=== PATIENT | female | born 1950 | race Caucasian/White ===

== ENCOUNTER 2018-06-08 12:34 | Day surgery (SDC) | payer OTHER ==
[2018-06-07 15:16] VITALS: BMI 43.8
--- NOTE | 2018-06-08 12:08 | HP ---
Satellite [facility] - Chief Complaint Chief Complaint: right hand pain/numbness - Past Medical History Allergies/Adverse Reactions: Allergies Allergy/AdvReac Type Severity Reaction Status Date / Time amoxicillin Allergy Intermediate Rash Verified 06/07/18 15:08 - Current Medications Current Medications: Home Medications Medication Instructions Recorded Aspirin [ASA -] 81 mg PO DAILY 05/15/13 Cholecalciferol (Vitamin D3) 2,000 units PO BID 02/12/14 [Vitamin D-3] Furosemide [Lasix -] 40 mg PO DAILY 02/12/14 Valsartan [Diovan] 80 mg PO DAILY 02/12/14 metFORMIN HCL [Glucophage] 1,000 mg PO BID 02/12/14 Nebivolol [Bystolic -] 5 mg PO DAILY #0 tab 02/26/14 Allopurinol [Zyloprim -] 100 mg PO DAILY 06/07/18 Canagliflozin [Invokana] 100 mg PO ACBK 06/07/18 Cholecalciferol (Vitamin D3) 2,000 unit PO DAILY 06/07/18 [Vitamin D3] Cyanocobalamin [Vitamin B12 -] 1,000 mcg PO DAILY 06/07/18 Furosemide [Lasix] 40 mg PO DAILY 06/07/18 Linagliptin [Tradjenta] 5 mg PO BK 06/07/18 Pravastatin Sodium 20 mg PO HS 06/07/18 Valsartan [Diovan] 180 mg PO DAILY 06/07/18 Hydrocodone/Acetaminophen [Everett 1 each PO Q6H PRN #20 tablet MDD 4 06/08/18 5-325 Tablet] Satellite Physical Exam - Physical Examination General Appearance: Well Nourished, Well Developed, Alert & Oriented x3 ENT: Clear Lung: Normal air movement Heart: Regular rate & rhythm Extremities: Other (right hand- + tinels, + phalens EMG + cts) Neurological: Intact, Alert, Oriented Satellite Impression/Plan - Impression/Plan Impression: right cts Operative Procedure: right ctr Date to be Performed: 06/08/18
[2018-06-08] MEDS ORDERED: ceFAZolin SODIUM 1 GM VIAL IVPB ONE (13:20)
[2018-06-08] MEDS ORDERED: MIDAZOLAM HCL 2 MG/2 ML SINGLE DOSE VIAL ONE (14:17)
[2018-06-08] MEDS ORDERED: LIDOCAINE HCL 1%, 10 MG/ML (20ML VIAL) ONE (14:48)
[2018-06-08] MEDS ORDERED: BUPIVACAINE HCL/PF 0.5% (5MG/ML) 10 ML VIAL ONE (14:48)
[2018-06-08] MEDS ORDERED: LIDOCAINE HCL 1%, 10 MG/ML (20ML VIAL) NR ONE (15:33)
[2018-06-08] MEDS ORDERED: BUPIVACAINE HCL/PF (5 MG/ML) 30 ML VIAL IJ ONE (15:33)
--- NOTE | 2018-06-08 15:38 | OP ---
Operative Note - Note: Operative Date: 06/08/18 ([facility]) Pre-Operative Diagnosis: right cts Operation: right ctr Post-Operative Diagnosis: Same as Pre-op Surgeon: Nelson Duke Anesthesiologist/ACCOUNTING MACHINE SERVICER: Jose Eduardo Rolon Anesthesia: Local, MAC Specimens Removed: tenosynovium Estimated Blood Loss (mls): 0 (tourniquet) Operative Report Dictated: Yes
[2018-06-08] MEDS ORDERED: DEXAMETHASONE SOD PHOSPHATE 4 MG/1 ML VIAL ONE (15:39)
[2018-06-08] MEDS ORDERED: ONDANSETRON 4 MG/2 ML VIAL IVPUSH PRN (16:05)
[2018-06-08] MEDS ORDERED: oxyCODONE HCL 5 MG TABLET PO PRN (16:05)
[2018-06-08] MEDS ORDERED: LACTATED RINGERS SOLUTION 1,000 ML IV SCH (16:15)
[2018-06-08 17:36] VITALS: BP 126/60; PULSE 67; TEMP 98.2
--- NOTE | 2018-06-09 06:57 | SPEC ---
DATE OF OPERATION: 06/08/2018 PREOPERATIVE DIAGNOSIS: Left carpal tunnel syndrome. POSTOPERATIVE DIAGNOSIS: Left carpal tunnel syndrome. PROCEDURE: Left carpal tunnel release and tenosynovectomy. SURGEON: Corinna Tony MD ASSISTANTS: None. PRODUCTION OR PLANT ENGINEER: Jose Eduardo Rolon CRNA DRAINS: None. COMPLICATIONS: None. ANESTHESIA: MAC anesthesia with local injection of 14 mL of 0.5% Marcaine and 1% lidocaine mixed. SPECIMEN: Tenosynovium. INDICATIONS: This patient is a 68-year-old female with a preoperative diagnosis of severe left carpal tunnel syndrome. She understands she may not get complete relief of her symptoms, she may have a continuation of the numbness. DESCRIPTION OF PROCEDURE: The patient was brought to the operating room, peripheral IV placed and intravenous sedation was given. One gram of intravenous Ancef was given. MAC anesthesia was induced. A tourniquet was applied to the left upper arm and the left upper extremity was prepped and draped in sterile fashion. The entire case was done under 3.8 loupe magnification. A marking pen was utilized to ladonna out a longitudinal incision in an already existing skin crease. Twenty mL of 0.5% Marcaine mixed with 1% Lidocaine was injected in and around the surgical incision. The left upper extremity was elevated, exsanguinated with an Esmarch bandage and the tourniquet inflated to 250 mmHg. A No. 15 scalpel blade was utilized to cut down through the skin. Subcutaneous hemostasis was achieved with the bipolar cautery. Dissection was done through the superficial palmar fascia. Self-retaining retractors were placed into the wound. Under direct visualization, the transverse carpal ligament was transected with a No. 15 scalpel blade, exposing the median nerve and the contents of the carpal tunnel. The distal and proximal extents of the release were completed with a Littler scissor and checked with irrigation and my small finger. They were seen to be complete. Limited dissection was done on the radial side of the median nerve and more extensive dissection was done on the ulnar side of the median nerve. The patients nerve was seen to be quite compressed by epineurium and therefore a limited epineurotomy was performed. A Ragnell retractor was used to gently retract the median nerve in a radial direction. The patient had a lot of tenosynovitis and therefore a tenosynovectomy was performed off all 9 flexor tendons. This was passed off the field as tenosynovium left wrist. The floor of the carpal tunnel was checked. There were no abnormal masses or ganglion cysts. The area was copiously irrigated and washed out and closure begun. Undyed 4-0 Vicryl was used to close the deep dermal layer. Final skin reapproximation was done with horizontal mattress 4-0 nylon sutures. The area was then washed and dried, covered with Xeroform, 4x4s, fluffs between the fingers, Webril and a 4-inch plaster roll was utilized to make a volar splint, which was then wrapped with Venkatesh and Coban. The tourniquet was taken down after a total tourniquet time of 18 minutes. There were no complications during the case. The patient tolerated the procedure well and was brought to the ambulatory recovery room in stable condition. CORINNA TONY M.D. [id number]
--- NOTE | 2018-06-10 17:11 | PATH ---
Surgical Pathology Report Patient Name: GRACIELA DE LA O [facility]. Rec. #: [id number] /Age/Gender: 1950 (Age: 68) / F Account: [id number] Location: [facility] SURGICAL Taken: 06/08/2018 Received: 06/09/2018 Reported: 06/10/2018 Physicians: Nelson Duke M.D. Specimen(s) Received RIGHT TENOSYNOVIUM Clinical History Carpel tunnel right Final Diagnosis TENOSYNOVIUM, BIOPSY: TENOSYNOVIAL TISSUE WITH FOCAL FIBROSIS. Electronically Signed Dallas Parsons M.D. Gross Description Received in formalin labeled "tenosynovium," is a 1.1 x 1.0 x 0.2 cm aggregate of ellis soft tissue fragments, consistent with tenosynovium. The specimen is entirely submitted in one cassette. DL/06/09/2018 saudi/06/09/2018
== END 2018-06-08 17:40 | disposition home or self-care (01) ==
LOC: JASU-SURG 12:34
PROVIDERS: ATTEND Orthopaedic Surgery
PROC: 0LB60ZZ Excision of Left Lower Arm and Wrist Tendon, Open Approach (ICD-10-PCS; 2018-06-08)
PROC: 01N50ZZ Release Median Nerve, Open Approach (ICD-10-PCS; principal; 2018-06-08 14:30)
DX: G56.02 Carpal tunnel syndrome, left upper limb (principal); M65.832 Other synovitis and tenosynovitis, left forearm
CPT/HCPCS: 82962; 88304-TC

== ENCOUNTER 2018-09-11 12:56 | Emergency (ER) | payer OTHER ==
[2018-09-11 13:11] VITALS: BMI 38.7
--- NOTE | 2018-09-11 14:14 | PDOC ---
History of Present Illness - General Chief Complaint: Injury Stated Complaint: INJURED RIGHT HAND BOTH KNEE IN PAIN Time Seen by Provider: 09/11/18 13:58 History Source: Patient Exam Limitations: No Limitations - History of Present Illness Initial Comments: 09/11/18 14:09 HISTORY OF PRESENT ILLNESS: This 68-year-old lady with past medical history of CHF, hypertension, diabetes who presents emergency department for evaluation of bilateral knee pain, right wrist pain and headache status post trip and fall. Patient states she was walking in her garage when she failed to step over a tiny step causing her to trip landing first on both knees then on her outstretched right hand causing her to strike the top her head on the bottom of a sink that was in front of her. She denies loss of consciousness at the time. Patient states her helped her get to her feet but was ambulatory immediately upon getting to feet. No recent travel or sick contacts. PAST MEDICAL HISTORY: see HPI SURGICAL HISTORY: Denies ALLERGIES: PCN REVIEW OF SYSTEMS General/Constitutional: Denies fever or chills. Denies weakness, weight change. HEENT: Denies change in vision. Denies ear pain or discharge. Denies sore throat. Cardiovascular: Denies chest pain or shortness of breath. Respiratory: Denies cough, wheezing, or hemoptysis. Gastrointestinal: Denies nausea, vomiting, diarrhea or constipation. Denies rectal bleeding. Genitourinary: Denies dysuria, frequency, or change in urination. Musculoskeletal: Bilateral knee pain. Right wrist pain and swelling. Skin and breasts: Denies rash or easy bruising. Neurologic: Reports headache. Denies vertigo, loss of consciousness, or loss of sensation. Psychiatric: Denies depression or anxiety. Endocrine: Denies increased thirst. Denies abnormal weight change. Hematologic/Lymphatic: Denies anemia, easy bleeding, or history of blood clots. Allergic/Immunologic: Denies hives or skin allergy. Denies latex allergy. PHYSICAL EXAM General Appearance: Well-appearing, appropriately dressed. No apparent distress , no intoxication. HEENT: EOMI, PERRLA, normal ENT inspection, normal voice, TMs normal, pharynx normal. No conjunctival pallor. No photophobia, scleral icterus. No palpable skull deformity. No hematomas noted no lacerations present Neck: Supple. Trachea midline. No tenderness, rigidity, carotid bruit, stridor , lymphadenopathy, or thyromegaly. Respiratory/Chest: Lungs CTAB. No shortness of breath, chest tenderness, respiratory distress, accessory muscle use. No crackles, rales, rhonchi, stridor , wheezing, dullness Cardiovascular: RRR. S1, S2. No JVD, murmur, bradycardia, tachycardia. Vascular Pulses: Dorsalis-Pedis (R): 2+, Dorsalis-Pedis (L): 2+ Gastrointestinal/Abdominal: Normal bowel sounds. Abdomen soft, non-distended. No tenderness or rebound tenderness. No organomegaly, pulsatile mass, guarding, hernia, hepatomegaly, splenomegaly. Lymphatic: No adenopathy, tenderness. Musculoskeletal/Extremities: Pelvis Stable. No CVA tenderness. Abrasions noted to bilateral anterior knees. Patellas are mobile bilaterally. No swelling present. Ecchymosis present to dorsum of the right hand over the seconds and third metacarpals. Tenderness to palpation or ecchymosis. Integumentary: Appropriate color, dry, warm. No cyanosis, erythema, jaundice or rash Neurologic: hemp fiber taker off II-XII intact. Fully oriented, alert. Appropriate mood/affect. Motor strength 5/5. No appreciable EOM palsy, facial droop or sensory deficit. Past History - Past Medical History Allergies/Adverse Reactions: Allergies Allergy/AdvReac Type Severity Reaction Status Date / Time amoxicillin Allergy Intermediate Rash Verified 09/11/18 13:02 Home Medications: Ambulatory Orders Aspirin [ASA -] 81 mg PO DAILY 05/15/13 Cholecalciferol (Vitamin D3) [Vitamin D-3] 2,000 units PO BID 02/12/14 metFORMIN HCL [Glucophage] 1,000 mg PO BID 02/12/14 Allopurinol [Zyloprim -] 100 mg PO DAILY 06/07/18 Canagliflozin [Invokana] [facility] 06/07/18 Cyanocobalamin [Vitamin B12 -] 1,000 mcg PO DAILY 06/07/18 Furosemide [Lasix] 40 mg PO DAILY 06/07/18 Linagliptin [Tradjenta] 5 mg PO BK 06/07/18 Pravastatin Sodium 20 mg PO HS 06/07/18 Valsartan [Diovan] 180 mg PO DAILY 06/07/18 Anemia: No Asthma: No Cancer: No Cardiac Disorders: No CVA: No COPD: No CHF: No DVT: No Dementia: No Diabetes: Yes GI Disorders: No Disorders: No HTN: Yes Hypercholesterolemia: Yes Liver Disease: No Seizures: No Thyroid Disease: No - Surgical History Orthopedic Surgery: Yes (right arthroscopy,right knee replacement) - Immunization History Immunization Up to Date: Yes - Suicide/Smoking/Psychosocial Hx Smoking History: Never smoked Have you smoked in the past 12 months: No Hx Alcohol Use: No Drug/Substance Use Hx: No Substance Use Type: None Hx Substance Use Treatment: No *Physical Exam - Vital Signs Last Vital Signs Temp Pulse Resp BP Pulse Ox 97 F L 84 18 176/61 H 97 09/11/18 12:58 09/11/18 12:58 09/11/18 12:58 09/11/18 12:58 09/11/18 12:58 ED Treatment Course - RADIOLOGY Radiology Studies Ordered: Category Date Time Status HEAD CT WITHOUT CONTRAST [CT] Stat CT Scan 09/11/18 14:07 Ordered KNEE 3 POS-LEFT [RAD] Stat Radiology 09/11/18 14:07 Ordered KNEE 3 POS-RIGHT [RAD] Stat Radiology 09/11/18 14:07 Ordered WRIST W/HAND-RIGHT* [RAD] Stat Radiology 09/11/18 14:07 Ordered Medical Decision Making - Medical Decision Making 09/11/18 14:13 A/P: 68-year-old woman with multiple complaints status post trip and fall No obvious head trauma present Swelling and ecchymosis to the dorsum of the right hand over the second and third metacarpal bones Abrasions noted to bilateral knees. Patient is refusing pain medication at this time X-rays, CT of the head, reassess 09/11/18 14:47 X-rays of the wrist and hand as read by Dr. Vazquez: Loss of bone density. Degenerative changes. Calcification ulnar styloid process. Cystic carpal bone changes. Some soft tissue swelling. X-rays of the left knee: There place which appears intact with no signs of loosening. There is no sign of fracture. There is some soft tissue swelling. X-rays of the right knee: Intact right knee replacement. Minimal swelling. No sign of fracture or subluxation. 09/11/18 16:00 CT as read by Dr. Oscar: Negative exam. No discrete noncontrast CT pathology is identified. As all radiographic studies are negative. I will discharge the patient home to follow up with primary doctor. She continues to refuse analgesics at this time. I discussed the physical exam findings, ancillary test results and final diagnoses with the patient. I answered all of the patient's questions. The patient was satisfied with the care received and felt comfortable with the discharge plan and treatment plan. The patient will call their primary care physician within 24 hours to arrange follow-up and will return to the Emergency Department with any new, persistent or worsening symptoms. *DC/Admit/Observation/Transfer Diagnosis at time of Disposition: Fall at home Qualifiers: Encounter type: initial encounter Qualified Code(s): W19.XXXA - Unspecified fall, initial encounter; Y92.009 - Unspecified place in unspecified non- institutional (private) residence as the place of occurrence of the external cause Wrist contusion Qualifiers: Encounter type: initial encounter Laterality: right Qualified Code(s): S60.211A - Contusion of right wrist, initial encounter Knee pain, bilateral Qualifiers: Chronicity: acute Qualified Code(s): M25.561 - Pain in right knee; M25.562 - Pain in left knee Closed head injury Qualifiers: Encounter type: initial encounter Qualified Code(s): S09.90XA - Unspecified injury of head, initial encounter - Discharge Dispostion Disposition: HOME Condition at time of disposition: Fair Decision to Admit order: No - Referrals Referrals: Dana Eason MD [Primary Care Provider] - - Patient Instructions Printed Discharge Instructions: DI for Closed Head Injury, How to Prevent Falls Additional Instructions: Rest, avoid strenuous activity or exercise for the next 24-48 hours May use ice on contusions as needed. May use Tylenol or Motrin for pain relief Watch and seek evaluation for changes in behavior including crankiness, inconsolability, quietness/ sleepiness that is inappropriate, tiredness that is inappropriate, watch for worsening and changes of behavior. Seek immediate evaluation/return to emergency department for vomiting, mental status changes, pain that's out of proportion , bloody drainage from ears or nose. Followup with private physician as needed in one to 2 days for reevaluation - Post Discharge Activity
[2018-09-11 16:10] VITALS: BP 134/67; PULSE 59; TEMP 97.6
== END 2018-09-11 16:10 | disposition home or self-care (01) ==
LOC: JER 12:56 → JERFT 12:56
DX: S09.8XXA Other specified injuries of head, initial encounter (principal); R51 Headache; S60.211A Contusion of right wrist, initial encounter; M25.561 Pain in right knee; M25.562 Pain in left knee; Z96.651 Presence of right artificial knee joint; W01.198A Fall on same level from slipping, tripping and stumbling with subsequent striking against other object, initial encounter; Y93.89 Activity, other specified; Y92.015 Private garage of single-family (private) house as the place of occurrence of the external cause; Y99.8 Other external cause status; I10 Essential (primary) hypertension; I50.9 Heart failure, unspecified; E11.9 Type 2 diabetes mellitus without complications; Z79.84 Long term (current) use of oral hypoglycemic drugs; E78.00 Pure hypercholesterolemia, unspecified
CPT/HCPCS: 70450-TC; 73110-TC-RT-FY; 73130-TC-RT-FY; 73562-TC-LT-FY; 73562-TC-RT-FY; 99281-25

== ENCOUNTER 2020-01-06 17:58 | Observation (INO) | payer OTHER ==
--- NOTE | 2020-01-06 18:43 | PDOC ---
History of Present Illness - General Chief Complaint: Lightheaded Stated Complaint: NAUSEA/DIZZINESS Time Seen by Provider: 01/06/20 18:42 History Source: Patient Exam Limitations: No Limitations - History of Present Illness Initial Comments: 01/06/20 18:42 Kamaljit Whelan is a 70F with PMH HTN, HLD, NIDDM presenting with lightheadedness with syncope and nausea. Patient presents with at bedside. 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 Leighton nauseated after without vomiting. Denies chest pain, SOB, palpitations, abdominal pain. BP checked at home 130s both arms. Blood sugar 129 this morning. Went about her day today without feeling dizzy, first time feeling lightheaded like this, has never fainted before. Walks with cane at baseline. Denies fever/chills, sick contacts, KIMBALL, hearing changes, diarrhea/constipation, urinary sx. No prior cardiac history or thyroid issues. Currently reports no nausea, chest pain, or dizziness, but needed to come into ED by wheelchair. PMD Dr. Doan Cards Dr. Bright [id number] Past History - Past Medical History Allergies/Adverse Reactions: Allergies Allergy/AdvReac Type Severity Reaction Status Date / Time amoxicillin Allergy Intermediate Rash Verified 01/06/20 18:12 Home Medications: Ambulatory Orders Aspirin [ASA -] 81 mg PO DAILY 05/15/13 Cholecalciferol (Vitamin D3) [Vitamin D-3] 2,000 units PO BID 02/12/14 metFORMIN HCL [Glucophage] 1,000 mg PO BID 02/12/14 Cyanocobalamin [Vitamin B12 -] 1,000 mcg PO DAILY 06/07/18 Furosemide [Lasix] 40 mg PO DAILY 06/07/18 Pravastatin Sodium 20 mg PO HS 06/07/18 Losartan Potassium [Cozaar -] 50 mg PO DAILY 01/06/20 Anemia: No Asthma: No Cancer: No Cardiac Disorders: No CVA: No COPD: No CHF: No DVT: No Dementia: No Diabetes: Yes GI Disorders: No Disorders: No HTN: Yes Hypercholesterolemia: Yes Liver Disease: No Seizures: No Thyroid Disease: No - Surgical History Orthopedic Surgery: Yes (right arthroscopy,right knee replacement) - Immunization History Immunization Up to Date: Yes - Psycho Social/Smoking Cessation Hx Smoking History: Never smoked Have you smoked in the past 12 months: No Hx Alcohol Use: No Drug/Substance Use Hx: No Substance Use Type: None Hx Substance Use Treatment: No Review of Systems - Review of Systems Able to Perform ROS?: Yes Constitutional: No: Chills, Fever HEENTM: Yes: Blurred Vision. No: Double Vision, Hearing Loss, Dental Problems Respiratory: No: Cough, Shortness of Breath, SOB with Exertion, SOB at Rest Cardiac (ROS): No: Chest Pain, Irregular Heart Rate, Lightheadedness, Palpitations, Syncope, Chest Tightness ABD/GI: Yes: Nausea. No: Constipated, Diarrhea, Poor Fluid Intake, Rectal Bleeding, Vomiting : No: Burning, Dysuria, Discharge, Frequency, Flank Pain, Hematuria, Incontinence Musculoskeletal: No: Back Pain, Muscle Weakness, Neck Pain Integumentary: No: Symptoms Reported Neurological: Yes: Unsteady Gait. No: Headache, Numbness, Paresthesia Endocrine: No: Symptoms Reported Hematologic/Lymphatic: No: Symptoms Reported All Other Systems: Reviewed and Negative *Physical Exam - Vital Signs Last Vital Signs Temp Pulse Resp BP Pulse Ox 98.2 F 75 20 132/74 99 01/06/20 18:16 01/06/20 18:16 01/06/20 18:16 01/06/20 18:16 01/06/20 18:16 - Physical Exam General Appearance: Yes: Nourished, Appropriately Dressed, Obese HEENT: positive: EOMI, JERARDO, Normal Voice, Symmetrical, Pharynx Normal, Hearing Grossly Normal. negative: Scleral Icterus (R), Scleral Icterus (L), Muffled/ Hoarse voice, Pharyngeal Erythema, Tonsillar Exudate, Tonsillar Erythema Neck: positive: Trachea midline, Normal Thyroid, Supple. negative: Tender, Rigid, Lymphadenopathy (R), Lymphadenopathy (L), Tender lateral, Tender midline Respiratory/Chest: positive: Lungs Clear, Normal Breath Sounds. negative: Chest Tender, Respiratory Distress, Accessory Muscle Use, Crackles, Rales, Rhonchi, Stridor, Wheezing Cardiovascular: positive: Regular Rhythm, Regular Rate. negative: Murmur Gastrointestinal/Abdominal: positive: Normal Bowel Sounds, Soft. negative: Tender, Organomegaly, Pulsatile Mass, Guarding, Rebound, Hernia Musculoskeletal: positive: Normal Inspection. negative: CVA Tenderness, Decreased Range of Motion, Muscle Spasm Extremity: positive: Normal Capillary Refill, Normal Inspection, Normal Range of Motion, Pelvis Stable. negative: Tender, Pedal Edema, Swelling, Calf Tenderness Integumentary: positive: Normal Color, Dry, Warm. negative: Cold, Clammy Neurologic: positive: superior court justice II-XII NML intact, Fully Oriented, Alert, Normal Mood/ Affect, Normal Response, Motor Strength 5/5 (all groups appropriate strength for age), Finger to Nose (normal), Other (HINTS: no saccades to baseline, no nystagmus, no skew. Gait normal, able to walk backwards, but patient reports lightheadedness with position changes.). negative: Numbness, Sensory Deficit ( no decreased sensation to LT down to feet/hands) ED Treatment Course - LABORATORY CBC & Chemistry Diagram: 01/06/20 19:00 01/06/20 19:00 Medical Decision Making - Medical Decision Making 01/06/20 19:24 Patient with PMD NIDDM, HTN, HLD, no prior cardiac history presents with new onset pre-syncope and nausea without vomiting. No abdominal pain, no chest pain/ palpitations/SOB. Neuro exam grossly normal. VS stable. Ddx for new onset lightheadedness/dizziness concerning for brain lesion, electrolyte abnormalities, cardiac etiology, infection, dehydration, poor sympathetic tone. Most likely vasovagal given history, but will rule out more concerning causes. - CMP/CBC/Mag/Phos for eval lytes - CP/ECG/CXR for eval heart/lungs - CT head for eval brain lesion - UA/UC for eval UTI ECG shows NSR HR 69, QRS 98, QTc 437, TWI to aVR/V1-V3 known from prior ECG last year, no concerning findings 01/06/20 20:22 CXR unremarkable. Labs notable for: - CMP WNL - CBC WNL - trop <0.02 - urine WNL, no UTI 01/06/20 21:32 CT no intracranial pathology. Patient requires overnight observation with telemetry for syncope and further cardiac evaluation. HEART Score 5. 01/06/20 22:06 Orthostatic VS: - supine 132/56 - sitting 136/70 - standing 144/89 02/08/20 22:16 Discussed case with VETERINARY POULTRY INSPECTOR martin Carranza for tele/obs under Dr. Lema. Discharge - Discharge Information Problems reviewed: Yes Clinical Impression/Diagnosis: Lightheadedness, Nausea Condition: Stable - Admission Yes - Follow up/Referral Referrals: Jeane Doan MD [Primary Care Provider] - - Patient Discharge Instructions - Post Discharge Activity
--- NOTE | 2020-01-06 19:08 | PDOC ---
Documentation entered by Andrea Silverio SCRIBE, acting as scribe for Pattie Farr DO. Pattie Farr DO: This documentation has been prepared by the fadi, Andrea Silverio SCRIBE, under my direction and personally reviewed by me in its entirety. I confirm that the documentation accurately reflects all work, treatment, procedures, and medical decision making performed by me. Attending Attestation - Resident Resident Name: Kush Crystal - ED Attending Attestation I have performed the following: I have examined & evaluated the patient, The case was reviewed & discussed with the resident, I agree w/resident's findings & plan - HPI HPI: 01/06/20 19:04 The patient is a 70 year old female with a significant PMH of DM and HLD who presents to the emergency department for dizziness, nausea and loss of vision s/ p bending over to tie her shoes. Pt states her dizziness is worse when standing up. The patient denies chest pain, shortness of breath, headache and . Denies fever , chills, cough, vomiting, diarrhea and constipation. Denies dysuria, frequency , urgency and hematuria. Allergies: NKDA 01/06/20 19:08 - Physicial Exam PE: 01/06/20 19:05 Agree with resident exam. - Medical Decision Making 01/06/20 19:05 70-year-old female with sudden onset of lightheadedness dizziness and dimmed vision when bending over to tie her shoe Patient denies chest pain There is no associated trauma On exam patient has steady gait, she does feel more lightheaded when standing Plan for evaluation of near syncope/dizziness EKG shows a normal sinus rhythm at 69 bpm with no acute ST segment elevation Dizziness is now resolved, central cause unlikely Orthostatics Will hold at minimum for observation on medical service
[2020-01-06 19:34] LABS: BASO % 0.4 % (0-2.0); EOS % 1.8 % (0-4.5); HEMOGLOBIN 12.2 GM/dL (10.7-15.3); LYMPH % 20.7 % (8-40); MCH 30.8 pg (25.7-33.7); MCHC 33.9 g/dl (32.0-36.0); MEAN CELL VOLUME 90.8 fl (80-96); MEAN PLT VOLUME 8.8 fl (7.5-11.1); MONO % 7.8 % (3.8-10.2); NEUT % 69.3 % (42.8-82.8); PLATELET COUNT 230 K/MM3 (134-434); RBC 3.96 M/mm3 (3.60-5.2); RDW 13.6 % (11.6-15.6); WHITE BLOOD COUNT 9.2 K/mm3 (4.0-10.0)
[2020-01-06 19:55] LABS: INR 0.97 (0.83-1.09); PROTHROMBIN TIME (PATIENT) 11.5 SEC (9.7-13.0)
[2020-01-06 19:58] LABS: ACTIVATED PTT 26.9 SECONDS (25.2-36.5)
[2020-01-06 20:01] LABS: MAGNESIUM 1.6 mg/dL (1.8-2.4); PHOSPHOROUS 2.6 mg/dL (2.5-4.9)
[2020-01-06 20:07] LABS: ALBUMIN 3.8 g/dl (3.4-5.0); ALK PHOS 87 U/L (45-117); ANION GAP 10 MMOL/L (8-16); BILIRUBIN,TOTAL 0.2 mg/dL (0.2-1); BLOOD UREA NITROGEN 21.8 mg/dL (7-18); CALCIUM 9.7 mg/dL (8.5-10.1); CHLORIDE 100 mmol/L (98-107); CO2 27 mmol/L (21-32); GLUCOSE,RANDOM 163 mg/dL (74-106); POTASSIUM 3.8 mmol/L (3.5-5.1); SGOT/AST 20 U/L (15-37); SGPT/ALT 22 U/L (13-61); SODIUM 138 mmol/L (136-145); TOT PROT 7.3 g/dl (6.4-8.2)
[2020-01-06 20:45] LABS: EPI CELLS 2.3 /HPF (0-5/HPF); HYALINE CASTS 2 /lpf (0-8); URINE APPEARANCE CLEAR; URINE BACTERIA 24.2 /hpf (NEGATIVE); URINE BILIRUBIN NEGATIVE (NEGATIVE); URINE COLOR YELLOW; URINE GLUCOSE (UA) NEGATIVE (NEGATIVE); URINE KETONE NEGATIVE (NEGATIVE); URINE LEUK ESTERASE 1+ (NEGATIVE); URINE NITRITE NEGATIVE (NEGATIVE); URINE PROTEIN NEGATIVE (NEGATIVE); URINE RBC 2 /hpf (0-4); URINE UROBILINOGEN 0.2 mg/dL (0.2-1.0); URINE WBC 12 /hpf (0-5)
--- NOTE | 2020-01-06 22:27 | HP ---
Admitting History and Physical - Primary Care Physician PCP: Jeane Doan - Admission Chief Complaint: Syncope History of Present Illness: This is a 70 y/o woman with a PMHx of HTN, HLD, NIDDM, Severe Obesity. Who presents to the ED for Syncope x today. Patient reports while bending down to tie her shoe, she passed out. Her reports her "blacking out for a few seconds" Patient denies having any similar event. Patient denies SOB, chest pain , and palpitations. Patient denies fever, chills, cough, KIMBALL, AP, N/V/D, constipation, dysuria. Patient denies any sick contact exposures or recent travel. ED course was noted for: (1) Head CT- neg ICH, mass or lesions (2) Chest Xray- no congestive changes, no infiltrates (3) EKG- NSR, TWI (AVR, V1-V3) (4) Troponin- < 0.02 History Source: Patient, Family Member Limitations to Obtaining History: No Limitations - Past Medical History Cardiovascular: Yes: HTN, Hyperlipdemia Endocrine: Yes: Diabetes Mellitus - Smoking History Smoking history: Never smoked Have you smoked in the past 12 months: No - Alcohol/Substance Use Hx Alcohol Use: No Home Medications - Allergies Allergies/Adverse Reactions: Allergies Allergy/AdvReac Type Severity Reaction Status Date / Time amoxicillin Allergy Intermediate Rash Verified 01/06/20 18:12 - Home Medications Home Medications: Ambulatory Orders Aspirin [ASA -] 81 mg PO DAILY 05/15/13 Cholecalciferol (Vitamin D3) [Vitamin D-3] 2,000 units PO BID 02/12/14 metFORMIN HCL [Glucophage] 1,000 mg PO BID 02/12/14 Cyanocobalamin [Vitamin B12 -] 1,000 mcg PO DAILY 06/07/18 Furosemide [Lasix] 40 mg PO DAILY 06/07/18 Pravastatin Sodium 20 mg PO HS 06/07/18 Losartan Potassium [Cozaar -] 50 mg PO DAILY 01/06/20 Review of Systems - Review of Systems Constitutional: reports: No Symptoms Eyes: reports: No Symptoms HENT: reports: No Symptoms Neck: reports: No Symptoms Cardiovascular: reports: No Symptoms Respiratory: reports: No Symptoms Gastrointestinal: reports: No Symptoms Genitourinary: reports: No Symptoms Breasts: reports: No Symptoms Reported Musculoskeletal: reports: No Symptoms Integumentary: reports: No Symptoms Neurological: reports: Syncope Endocrine: reports: No Symptoms Hematology/Lymphatic: reports: No Symptoms Psychiatric: reports: No Symptoms Pain Intensity: 0 Physical Examination Vital Signs: Vital Signs Temperature 98.2 F 01/06/20 18:16 Pulse Rate 75 01/06/20 18:16 Respiratory Rate 20 01/06/20 18:16 Blood Pressure 132/74 01/06/20 18:16 O2 Sat by Pulse Oximetry (%) 99 01/06/20 18:16 Constitutional: Yes: Well Nourished, No Distress, Calm Eyes: Yes: WNL, Conjunctiva Clear, EOM Intact, PERRL HENT: Yes: WNL, Atraumatic, Normocephalic Neck: Yes: WNL, Supple, Trachea Midline Cardiovascular: Yes: Regular Rate and Rhythm, S1, S2 Respiratory: Yes: WNL, Regular, CTA Bilaterally Gastrointestinal: Yes: WNL, Normal Bowel Sounds, Soft, Abdomen, Obese ...Rectal Exam: Yes: Deferred Renal/: Yes: WNL Breast(s): Yes: WNL Musculoskeletal: Yes: WNL Extremities: Yes: WNL Edema: No Peripheral Pulses WNL: Yes Integumentary: Yes: WNL Neurological: Yes: WNL, Alert, Oriented, Cran Nerves II-XII Intact ...Motor Strength: WNL Psychiatric: Yes: WNL, Alert, Oriented Labs: CBC, BMP 01/06/20 19:00 01/06/20 19:00 Laboratory Results - last 24 hr 01/06/20 01/06/20 01/06/20 19:00 19:00 19:00 WBC RBC Hgb Hct MCV MCH MCHC RDW Plt Count MPV Absolute Neuts (auto) Neutrophils % Lymphocytes % Monocytes % Eosinophils % Basophils % Nucleated RBC % PT with INR 11.50 INR 0.97 PTT (Actin FS) 26.9 Sodium 138 Potassium 3.8 Chloride 100 Carbon Dioxide 27 Anion Gap 10 BUN 21.8 H Creatinine 1.0 Est GFR (CKD-EPI)AfAm 65.18 Est GFR (CKD-EPI)NonAf 56.24 POC Glucometer Random Glucose 163 H Calcium 9.7 Phosphorus 2.6 Magnesium 1.6 L Total Bilirubin 0.2 AST 20 ALT 22 Alkaline Phosphatase 87 Creatine Kinase 184 Creatine Kinase Index 3.1 CK-MB (CK-2) 5.8 H Troponin I < 0.02 Total Protein 7.3 Albumin 3.8 Urine Color Urine Appearance Urine pH Ur Specific [place] Urine Protein Urine Glucose (UA) Urine Ketones Urine Blood Urine Nitrite Urine Bilirubin Urine Urobilinogen Ur Leukocyte Esterase Urine WBC (Auto) Urine RBC (Auto) Urine Casts (Auto) U Epithel Cells (Auto) Urine Bacteria (Auto) 01/06/20 01/06/20 01/06/20 19:00 20:00 22:30 WBC 9.2 RBC 3.96 Hgb 12.2 Hct 36.0 D MCV 90.8 MCH 30.8 MCHC 33.9 RDW 13.6 Plt Count 230 MPV 8.8 Absolute Neuts (auto) 6.4 Neutrophils % 69.3 Lymphocytes % 20.7 Monocytes % 7.8 Eosinophils % 1.8 Basophils % 0.4 Nucleated RBC % 0 PT with INR INR PTT (Actin FS) Sodium Potassium Chloride Carbon Dioxide Anion Gap BUN Creatinine Est GFR (CKD-EPI)AfAm Est GFR (CKD-EPI)NonAf POC Glucometer 167 Random Glucose Calcium Phosphorus Magnesium Total Bilirubin AST ALT Alkaline Phosphatase Creatine Kinase Creatine Kinase Index CK-MB (CK-2) Troponin I Total Protein Albumin Urine Color Yellow Urine Appearance Clear Urine pH 5.0 Ur Specific [place] 1.016 Urine Protein Negative Urine Glucose (UA) Negative Urine Ketones Negative Urine Blood Trace Urine Nitrite Negative Urine Bilirubin Negative Urine Urobilinogen 0.2 Ur Leukocyte Esterase 1+ H Urine WBC (Auto) 12 Urine RBC (Auto) 2 Urine Casts (Auto) 2 U Epithel Cells (Auto) 2.3 Urine Bacteria (Auto) 24.2 Intake & Output 01/03/20 01/04/20 01/05/20 01/06/20 23:59 23:59 23:59 23:59 Weight 100 kg Current Medications Generic Name Dose Route Start Last Admin Trade Name Freq PRN Reason Stop Dose Admin Aspirin 81 mg 01/07/20 10:00 Asa - PO DAILY [facility] Atorvastatin Calcium 10 mg 01/07/20 22:00 Lipitor - PO HS [facility] Cholecalciferol 2,000 unit 01/07/20 10:00 Vitamin D3 - PO BID [facility] Cyanocobalamin 1,000 mcg 01/07/20 10:00 Vitamin B12 - PO DAILY [facility] Furosemide 40 mg 01/07/20 10:00 Lasix - PO DAILY [facility] Heparin Sodium (Porcine) 5,000 unit 01/07/20 10:00 Heparin - SQ BID [facility] Insulin Aspart 1 vial 01/07/20 07:00 Novolog Vial Sliding Scale - SQ ACHS [facility] Protocol Losartan Potassium 50 mg 01/07/20 10:00 Cozaar - PO DAILY [facility] Metformin HCl 1,000 mg 01/07/20 07:00 Glucophage - PO BIDAC [facility] Imaging - Results Chest X-ray: Report Reviewed, Image Reviewed Cat Scan: Report Reviewed, Image Reviewed EKG: Image Reviewed Problem List - Problems (1) Syncope Code(s): R55 - SYNCOPE AND COLLAPSE (2) Lightheadedness Code(s): R42 - DIZZINESS AND GIDDINESS (3) HTN (hypertension) Code(s): I10 - ESSENTIAL (PRIMARY) HYPERTENSION (4) HLD (hyperlipidemia) Code(s): E78.5 - HYPERLIPIDEMIA, UNSPECIFIED (5) Non-insulin dependent diabetes mellitus Code(s): LVF8038 - (6) Severe obesity (BMI 35.0-39.9) with comorbidity Code(s): E66.01 - MORBID (SEVERE) OBESITY DUE TO EXCESS CALORIES Assessment/Plan This is a 70 y/o woman with a PMHx of HTN, HLD, NIDDM, Severe Obesity. Placed in Telemetry Observation for Syncope for further evaluation of their emergent condition. Plan: Tele Observation Likely secondary to Vasovagal vs Arrhythmia HEART Score 5 Continue Cardiac monitoring Serial Enzymes Appreciate Cardiology consult Echo in am Carotid Doppler r/o Stenosis Lipid panel, CBC, BMP, TSH, Mg, phos in am Orthostatics Neuro checks Fall Precautions Continue home meds BGMs ISS FEN- PO fluids as tolerated, Replete lytes prn, Low Na, Diabetic Diet DVT ppx- OOB, SCDs, Heparin SQ Dispo- Observation Visit type - Emergency Visit Emergency Visit: Yes ED Registration Date: 01/06/20 Care time: The patient presented to the Emergency Department on the above date and was hospitalized for further evaluation of their emergent condition. - New Patient This patient is new to me today: Yes Date on this admission: 01/06/20 - Critical Care Critical Care patient: No
[2020-01-07 05:40] VITALS: BMI 38.5
[2020-01-07] MEDS: INSULIN SLIDING SCALE (NOVOLOG) 1 VIAL SQ SCH ×4 (08:07→21:50)
[2020-01-07] MEDS: metFORMIN HCL 500 MG TABLET (FP) PO SCH ×2 (08:07→16:52)
[2020-01-07] MEDS: ASPIRIN 81 MG CHEWABLE TABLETS PO SCH (09:13)
[2020-01-07] MEDS: FUROSEMIDE 40 MG TABLET (FP) PO SCH (09:13)
[2020-01-07] MEDS: CYANOCOBALAMIN 1,000 MCG TABLET (FP) PO SCH (09:13)
[2020-01-07] MEDS: LOSARTAN POTASSIUM 50 MG TABLET (FP) PO SCH (09:13)
[2020-01-07] MEDS: HEPARIN NA (PORCINE) 5,000 UNITS/ML 1ML VIAL SQ SCH ×2 (09:14→21:48)
[2020-01-07] MEDS ORDERED: CHOLECALCIFEROL (VIT D3) 1,000 UNIT (25 MCG) TABLET PO SCH (10:00)
[2020-01-07 13:23] LABS: BASO % 0.6 % (0-2.0); EOS % 2.7 % (0-4.5); HEMATOCRIT 34.9 % (32.4-45.2); LYMPH % 34.2 % (8-40); MCH 30.8 pg (25.7-33.7); MCHC 34.4 g/dl (32.0-36.0); MEAN CELL VOLUME 89.7 fl (80-96); MEAN PLT VOLUME 8.6 fl (7.5-11.1); MONO % 6.7 % (3.8-10.2); NEUT % 55.8 % (42.8-82.8); PLATELET COUNT 232 K/MM3 (134-434); RBC 3.89 M/mm3 (3.60-5.2); RDW 13.4 % (11.6-15.6); WHITE BLOOD COUNT 7.4 K/mm3 (4.0-10.0)
[2020-01-07 13:36] LABS: ANION GAP 7 MMOL/L (8-16); BLOOD UREA NITROGEN 16.8 mg/dL (7-18); CALCIUM 10.3 mg/dL (8.5-10.1); CHLORIDE 100 mmol/L (98-107); CHOLESTEROL 181 mg/dL (50-200); CO2 28 mmol/L (21-32); CREATININE 0.8 mg/dL (0.55-1.3); GLUCOSE,RANDOM 121 mg/dL (74-106); HDL CHOLESTEROL 65 mg/dL (40-60); LDL CHOLESTEROL (ONLY SJRH) 84 mg/dL (5-100); MAGNESIUM 1.7 mg/dL (1.8-2.4); PHOSPHOROUS 2.9 mg/dL (2.5-4.9); POTASSIUM 3.9 mmol/L (3.5-5.1); SODIUM 136 mmol/L (136-145); TRIGLYCERIDES 228 mg/dL (0-150)
--- NOTE | 2020-01-07 13:56 | PN ---
Progress Note, Physician Chief Complaint: Syncope History of Present Illness: NAD denies any light headedness or dizziness - Current Medication List Current Medications: Active Medications Aspirin (Asa -) 81 mg PO DAILY [facility] Last Admin: 01/07/20 09:13 Dose: 81 mg Atorvastatin Calcium (Lipitor -) 10 mg PO [facility] Cholecalciferol (Vitamin D3 -) 2,000 unit PO BID [facility] Last Admin: 01/07/20 09:13 Dose: 2,000 unit Cyanocobalamin (Vitamin B12 -) 1,000 mcg PO DAILY [facility] Last Admin: 01/07/20 09:13 Dose: 1,000 mcg Furosemide (Lasix -) 40 mg PO DAILY [facility] Last Admin: 01/07/20 09:13 Dose: 40 mg Heparin Sodium (Porcine) (Heparin -) 5,000 unit SQ BID [facility] Last Admin: 01/07/20 09:14 Dose: 5,000 unit Insulin Aspart (Novolog Vial Sliding Scale -) 1 vial SQ [facility]; Protocol Last Admin: 01/07/20 11:39 Dose: Not Given Losartan Potassium (Cozaar -) 50 mg PO DAILY [facility] Last Admin: 01/07/20 09:13 Dose: 50 mg Metformin HCl (Glucophage -) 1,000 mg PO BIDAC [facility] Last Admin: 01/07/20 08:07 Dose: 1,000 mg - Objective Vital Signs: Vital Signs Temperature 98.3 F 01/07/20 09:00 Pulse Rate 70 01/07/20 09:00 Respiratory Rate 20 01/07/20 09:00 Blood Pressure 143/69 01/07/20 09:00 O2 Sat by Pulse Oximetry (%) 100 01/07/20 08:10 Constitutional: Yes: Well Nourished, No Distress, Calm Cardiovascular: Yes: Regular Rate and Rhythm Respiratory: Yes: Regular Gastrointestinal: Yes: WNL, Normal Bowel Sounds, Soft Genitourinary: Yes: WNL Musculoskeletal: Yes: WNL Extremities: Yes: WNL Edema: No Peripheral Pulses WNL: Yes Neurological: Yes: Alert, Oriented Psychiatric: Yes: Alert, Oriented Labs: CBC, BMP 01/07/20 12:40 01/07/20 12:15 INR, PTT INR 0.97 (0.83-1.09) 01/06/20 19:00 Problem List - Problems (1) HTN (hypertension) Assessment/Plan: -Resume home meds -Cardiology consult -Tele monitor -Orthostatic BP Problems reviewed: Yes Code(s): I10 - ESSENTIAL (PRIMARY) HYPERTENSION (2) Syncope Assessment/Plan: -Resume home meds -Cardiology consult -Tele monitor -check Orthostatic BP -Echo -U/S carotid Problems reviewed: Yes Code(s): R55 - SYNCOPE AND COLLAPSE (3) Diabetes Assessment/Plan: -recheck A1c -BGM AC HS -Diabetic low sodium diet -ISS -Continue metformin Problems reviewed: Yes Code(s): E11.9 - TYPE 2 DIABETES MELLITUS WITHOUT COMPLICATIONS (4) Hypomagnesemia Assessment/Plan: -Magnesium 400 mg po BID Problems reviewed: Yes Code(s): E83.42 - HYPOMAGNESEMIA (5) Hypercalcemia Assessment/Plan: -Recheck BMP in AM -Cut back on Vit D3 to 2000 U po daily Problems reviewed: Yes Code(s): E83.52 - HYPERCALCEMIA (6) Severe obesity (BMI 35.0-39.9) with comorbidity Problems reviewed: Yes Code(s): E66.01 - MORBID (SEVERE) OBESITY DUE TO EXCESS CALORIES
--- NOTE | 2020-01-07 14:14 | EKG ---
Test Reason : Blood Pressure : / mmHG Vent. Rate : 069 BPM Atrial Rate : 069 BPM P-R Int : 170 ms QRS Dur : 098 ms QT Int : 408 ms P-R-T Axes : 068 006 052 degrees QTc Int : 437 ms NORMAL SINUS RHYTHM CANNOT RULE OUT ANTERIOR INFARCT , AGE UNDETERMINED ABNORMAL ECG Confirmed by MD VERONA, ARTURO ([id number]) on 01/07/2020 2:14:46 PM Referred By: Confirmed By:ARTURO RHOADES MD
--- NOTE | 2020-01-07 21:35 | CONS ---
DATE OF CONSULTATION: DATE OF DICTATION: 01/07/2020 REQUESTING PHYSICIAN: Jeane Doan MD CHIEF COMPLAINT: 1. Lightheadedness. 2. Transient loss of vision. 3. Nausea. 4. Retching. Patient is a 70-year-old [place] female with longstanding history of hypertension, noninsulin-dependent diabetes mellitus, hypercholesterolemia, history of obstructive sleep apnea syndrome who had been out shopping for the day and came home around 4 p.m. and went downstairs to take her shoes off. When she bent down, she became extremely lightheaded, was unable to see, and called her for help who brought her to a chair. While she was sitting, she became nauseous and started retching. The patient slowly recovered. The lightheadedness persisted, but was less pronounced. She denies having vertigo. There is no history of tinnitus. There is no history of chest pain or discomfort either at rest or with exertion, no history of palpitations. Patient states recently she was found to have elevated blood pressure on 2 different occasions and the dose of losartan had been increased to 15 mg p.o. daily. On questioning, the patient had breakfast that consisted of 2 toasts and she took her medications, which included 1000 mg of metformin and later in the day left to do her shopping. She had no lunch and on return to the house she had a banana smoothie. The patient did state that she felt as if she had an "out of body" experience during these symptoms. PAST HISTORY: As mentioned in the history of present illness. SURGICAL HISTORY: Status post bilateral knee replacements. Surgery for carpal tunnel syndrome involving the right hand. She recently had evacuation of a cyst by her copper plate lithographer involving the right upper anterior chest. SOCIAL HISTORY: , works at her [employer]. Has a son and 2 daughters, who apparently at healthy. She has never smoked, does not drink alcohol. No history of excessive use of caffeine. FAMILY HISTORY: Father at age 86 related to carcinoma of the lung. Mother at the age of 85 apparently related to intestinal obstruction. She had 1 sister and 4 brothers. The sister apparently is healthy. A brother in his 60s due to myocardial infarction. A second brother following surgery and apparently had postoperative infection. A third brother at 81 years old of unknown cause. The remaining brother apparently has gout. ALLERGIES: AMOXICILLIN. MEDICATIONS PRIOR TO ADMISSION: 1. Metformin 1000 mg p.o. b.i.d. 2. Losartan 50 mg p.o. daily. 3. Lasix 20 mg p.o. daily for dependent edema. 4. Pravastatin 40 mg p.o. nightly. 5. Aspirin 81 mg p.o. daily. 6. Vitamin D3 2000 international units p.o. daily. 7. Vitamin B12 1000 mcg p.o. daily. REVIEW OF SYSTEMS: Constitutional: No history of chills, fever, or night sweats. No history of unintentional weight loss. HEENT: No history of headaches. History of visual disturbance as mentioned above. No history of epistaxis or hoarseness. No history of tinnitus or deafness. Cardiovascular: See history of present illness. No history of murmur. Respiratory: No history of nausea, vomiting, melena, or hematemesis. Gastrointestinal: History of nausea and retching. No history of vomiting. No history of melena or hematemesis. No history of change in bowel habits or abdominal discomfort. Neurologic: See history of present illness. No history of focal weakness, seizures, or syncope. Musculoskeletal: History of osteoarthritis. No history of myalgias. Genitourinary: Recently diagnosed to have uterine polyps, menopausal. No history of dysfunctional uterine bleeding. No history of dysuria, frequency, or hematuria. Hematologic/Lymphatic: No history of anemia, bleeding, or ecchymosis. Miscellaneous: History of obstructive sleep apnea, awaiting CPAP. PHYSICAL EXAMINATION: General: A 70-year-old morbidly obese female who is in no acute distress, no pallor, cyanosis, clubbing, or jaundice. Vital Signs: Blood pressure at 1400 hours, supine 154/78 mmHg, standing 138/70 mmHg. Pulse 73 beats per minute and regular, respirations 20 per minute, temperature 97.9 degrees Fahrenheit. Weight 101.718 kg. Oxygen saturation on room air was 100%. Neck: Short, supple. No jugular venous distention. Carotids were 2+. Upstrokes were normal. No bruits were heard. No thyromegaly was appreciated. Heart: PMI was in the 5th intercostal space. No heaves or thrills. Rhythm appeared regular. Heart sounds were distant. No murmur or gallops were heard. Lungs: Clear to auscultation. Chest: Normal AP diameter. Expansion grossly appeared to be normal. Abdomen: Morbidly obese, soft and nontender. No hepatosplenomegaly or palpable masses were felt. Bowel sounds are present. No bruits were appreciated. Extremities: No calf tenderness or dependent edema and there were bilateral varicosities involving both lower extremities, more pronounced on the left lower extremity. Pulses were equal. LABORATORY DATA: ECG January 06, 2020, at 1821: Sinus rhythm with intraatrial conduction abnormality. Poor R-wave progression V1 to V3. Possibility of an anterior septal wall myocardial infarction of indeterminate age, cannot be excluded. Changes may be related to lead placement. Nonspecific T-wave abnormalities. Repeat ECG on January 07, 2020, at 1412: Sinus rhythm, LVH by voltage criteria (AVL), left axis deviation, nonspecific T-wave abnormalities. Compared to tracing of January 06, 2020, there is increase in R-wave voltage in V2 and V3. ST segments were isoelectric. CBC January 07, 2020: WBC is 7400, hemoglobin 12.0 g/dL. Normal cell indices. Platelet count 232,000. Differential: Neutrophils 55.8%, lymphocytes 34.2%, monocytes 6.7%, eosinophils 2.7%, basophils 0.6%. Chemistry January 07, 2020: Sodium 136, potassium 3.9, chloride 100, CO2 28 mmol/L, BUN 16.8 mg/dL, creatinine 0.8 mg/dL. Random glucose is 121 mg/dL. Hemoglobin A1c is 6.7%. Calcium 10.3 mg/dL, phosphorous 2.9, magnesium 1.7 mg/dL (low). CK on January 07, 2020: Less than 0.02 on 2 different occasions. Lipid panel: Total cholesterol of 181, triglycerides 228, LDL cholesterol 84, HDL cholesterol 65 mg/dL. TSH is 2.87. X-ray of the chest, impression: No congestive changes or edema in the lungs. No sign of pneumonia. No mediastinal widening. CT of the head, impression: No acute intracranial hemorrhage. No suspicious findings in the brain. Carotid ultrasound report is pending. IMPRESSION: 1. Dizziness, nausea, near syncope with transient loss of vision, etiology to be determined. A. Transient ischemic attack needs exclusion. 2. Hypertension, hypertensive cardiovascular disease. Presently normotensive with mild decrease in blood pressure with change in posture. 3. Noninsulin-dependent diabetes mellitus. 4. Hypercholesterolemia. 5. Obstructive sleep apnea syndrome. 6. Generalized osteoarthritis. 7. Bilateral varicosities involving both lower extremities. RECOMMENDATIONS: 1. Consider myocardial perfusion study in view of the initial ECG findings. 2. Patient was strongly consulted that she must not go hungry during the day, especially after she has taken medication for her diabetes mellitus and should always carry candy with her. 3. Continue to check blood pressures supine and standing. 4. Consult regarding diet restrictions and requires weight reduction. 5. Patient was advised to contact the sleep physician, so a CPAP could be ordered as soon as possible. 6. Holter monitor should be considered as an outpatient basis. 7. Carotid ultrasound report is pending. Thank you for your referral. FILIPPO ARIZA M.D. [id number]
[2020-01-07] MEDS: MAGNESIUM OXIDE 400 MG TABLET (FP) PO SCH (21:48)
[2020-01-07] MEDS ORDERED: ATORVASTATIN CA 10 MG TABLET (FP) PO SCH (22:00)
[2020-01-08] MEDS: INSULIN SLIDING SCALE (NOVOLOG) 1 VIAL SQ SCH ×2 (06:05→12:11)
[2020-01-08] MEDS: metFORMIN HCL 500 MG TABLET (FP) PO SCH (06:06)
[2020-01-08 08:21] LABS: BLOOD UREA NITROGEN 20.9 mg/dL (7-18); CALCIUM 9.5 mg/dL (8.5-10.1); CREATININE 0.7 mg/dL (0.55-1.3); POTASSIUM 3.8 mmol/L (3.5-5.1)
--- NOTE | 2020-01-08 09:36 | EKG ---
Test Reason : Blood Pressure : / mmHG Vent. Rate : 060 BPM Atrial Rate : 060 BPM P-R Int : 182 ms QRS Dur : 100 ms QT Int : 412 ms P-R-T Axes : 036 -14 033 degrees QTc Int : 412 ms NORMAL SINUS RHYTHM WITH SINUS ARRHYTHMIA MODERATE VOLTAGE CRITERIA FOR LVH, MAY BE NORMAL VARIANT BORDERLINE ECG WHEN COMPARED WITH ECG OF 06-JAN-2020 18:21, NO SIGNIFICANT CHANGE WAS FOUND Confirmed by Cisco Desouza ([id number]) on 01/08/2020 9:36:45 AM Referred By: Caro FAUSTIN Confirmed By:Cisco Desouza
[2020-01-08] MEDS: ASPIRIN 81 MG CHEWABLE TABLETS PO SCH (09:44)
[2020-01-08] MEDS: HEPARIN NA (PORCINE) 5,000 UNITS/ML 1ML VIAL SQ SCH (09:44)
[2020-01-08] MEDS: FUROSEMIDE 40 MG TABLET (FP) PO SCH (09:44)
[2020-01-08] MEDS: LOSARTAN POTASSIUM 50 MG TABLET (FP) PO SCH (09:45)
[2020-01-08] MEDS: CYANOCOBALAMIN 1,000 MCG TABLET (FP) PO SCH (09:45)
[2020-01-08] MEDS: MAGNESIUM OXIDE 400 MG TABLET (FP) PO SCH (09:45)
[2020-01-08] MEDS ORDERED: CHOLECALCIFEROL (VIT D3) 1,000 UNIT (25 MCG) TABLET PO SCH (10:00)
--- NOTE | 2020-01-08 12:06 | ECHO ---
Name: COMPETIELLO, ANGIOLA Exam:Adult Echocardiogram Study Date: 01/08/2020 11:30 AM Age: 70 yrs Reason For Study: SYNCOPE Height: 64 in Weight: 220 lb BSA: 2.0 m2 MMode/2D Measurements & Calculations IVSd: 1.2 cm Ao root diam: 3.2 cm LVIDd: 5.1 cm LA dimension: 4.1 cm LVIDs: 3.3 cm LVPWd: 1.2 cm LVPWs: 1.2 cm EDV(Teich): 122.1 ml ESV(Teich): 45.1 ml LVOT diam: 2.1 cm LAV (MOD-bp): 70.7 ml RV S Chuy: 15.1 cm/sec Doppler Measurements & Calculations MV E max chuy: 85.9 cm/sec Ao V2 max: 167.9 cm/sec MV A max chuy: 115.4 cm/sec Ao max P.3 mmHg MV E/A: 0.74 AI P1/2t: 539.4 msec MV dec time: 0.23 sec AI max chuy: 442.8 cm/sec TR max chuy: 235.3 cm/sec AI max P.6 mmHg TR max P.1 mmHg AI dec slope: 240.5 cm/sec2 PA V2 max: 120.5 cm/sec Med Peak E' Chuy: 6.0 cm/sec PA max P.8 mmHg Med E/e': 14.4 Lat Peak E' Chuy: 6.2 cm/sec Lat E/e': 13.9 Procedure Study Quality: Fair. The study was technically difficult with many images being suboptimal in quality . Left Ventricle The left ventricle is normal in size. There is mild concentric left ventricular hypertrophy. Left fidel tricular systolic function is normal. Ejection Fraction = 60-65%. The transmitral spectral Doppler flow patter n is suggestive of impaired LV relaxation. Atria The left atrium is borderline dilated. Right atrial size is normal. Mitral Valve The mitral valve is grossly normal. There is trace mitral regurgitation. Tricuspid Valve The tricuspid valve is normal. No tricuspid regurgitation. Aortic Valve There is mild aortic sclerosis.;. Mild aortic regurgitation. Pulmonic Valve The pulmonic valve is not well seen, but is grossly normal. Great Vessels The aortic root is normal size. Pericardium/Pleura There is no pericardial effusion. Fat pad. Interpretation Summary LV: Normal size, mild LVH, normal systolic function, EF 60-65%, impaired relaxation RV: Normal Sclerotid aortic valve with mild regurgitation. Cisco Desouza 01/08/2020 12:05 PM
[2020-01-08 15:30] VITALS: BP 134/61; PULSE 67; TEMP 98.3
--- NOTE | 2020-01-08 16:14 | DS ---
Physical Examination Vital Signs: Vital Signs Temperature 98.3 F 01/08/20 15:10 Pulse Rate 67 01/08/20 15:10 Respiratory Rate 20 01/08/20 15:10 Blood Pressure 134/61 01/08/20 15:10 O2 Sat by Pulse Oximetry (%) 96 01/08/20 09:00 Findings/Remarks: FEELS GOOD, EVENTS AND NOTES REVIEWED DOES NOT REPORT ANY DIZZINESS OR LIGHTHEADEDNESS Constitutional: Yes: No Distress Cardiovascular: Yes: Regular Rate and Rhythm Respiratory: Yes: WNL Gastrointestinal: Yes: Abdomen, Obese Musculoskeletal: Yes: Other Edema: Yes Neurological: Yes: WNL ...Motor Strength: WNL Psychiatric: Yes: WNL Labs: CBC, BMP 01/07/20 12:40 01/08/20 06:00 Discharge Summary Problems reviewed: Yes Reason For Visit: PRE-SYNCOPE Current Active Problems Diabetes (Acute) HLD (hyperlipidemia) (Acute) HTN (hypertension) (Acute) Hypercalcemia (Acute) Hypomagnesemia (Acute) Lightheadedness (Acute) Nausea (Acute) Non-insulin dependent diabetes mellitus (Acute) Severe obesity (BMI 35.0-39.9) with comorbidity (Acute) Syncope (Acute) Procedures: Principal: CT HEAD, ECHO Hospital Course: ADMITTED FOR SYNCOPE, NO ALARMS ON TELEMETRY, CT HEAD NO ACUTE CHANGES, AND ECHO NO ACUTE CHANGES FOLLOW UP OUTPATIENT Plan of Treatment: HOME HEALTH AID WITH HOME P.T. Condition: Stable - Instructions Diet, Activity, Other Instructions: SEE DR TRIPP IN 7-10 DAYS FOR FOLLOW UP HOME PT WITH HEALTH AID WEIGHT LOSS/DIET/LOW CALORIE-LOW FAT DIET Referrals: Jeane Tripp MD [Primary Care Provider] - Disposition: VNS/HOME HEALTH CARE - Home Medications Comprehensive Discharge Medication List: Ambulatory Orders Aspirin [ASA -] 81 mg PO DAILY 05/15/13 Cholecalciferol (Vitamin D3) [Vitamin D-3] 2,000 units PO BID 02/12/14 metFORMIN HCL [Glucophage] 1,000 mg PO BID 02/12/14 Cyanocobalamin [Vitamin B12 -] 1,000 mcg PO DAILY 06/07/18 Furosemide [Lasix] 40 mg PO DAILY 06/07/18 Pravastatin Sodium 20 mg PO HS 06/07/18 Losartan Potassium [Cozaar -] 50 mg PO DAILY 01/06/20 Magnesium Oxide [Mag-Ox -] 400 mg PO BID #30 tablet 01/08/20 Prescription Drug Monitoring Program (I-STOP) results: I-STOP not reviewed
== END 2020-01-08 17:05 | disposition home health service (06) ==
LOC: JER 17:58 → JERBED 21:34 → J4W 01-07 07:19
PROVIDERS: ADMIT Internal Medicine; ATTEND Family Medicine
PROC: 3E013GC Introduction of Other Therapeutic Substance into Subcutaneous Tissue, Percutaneous Approach (ICD-10-PCS; principal; 2020-01-06)
DX: R55 Syncope and collapse (principal); R42 Dizziness and giddiness; I11.9 Hypertensive heart disease without heart failure; E78.5 Hyperlipidemia, unspecified; E11.9 Type 2 diabetes mellitus without complications; E83.42 Hypomagnesemia; E83.52 Hypercalcemia; E66.01 Morbid (severe) obesity due to excess calories; Z68.38 Body mass index [BMI] 38.0-38.9, adult; Z79.82 Long term (current) use of aspirin; Z79.84 Long term (current) use of oral hypoglycemic drugs; Z88.1 Allergy status to other antibiotic agents; Z96.651 Presence of right artificial knee joint; G47.33 Obstructive sleep apnea (adult) (pediatric); I83.93 Asymptomatic varicose veins of bilateral lower extremities; M19.90 Unspecified osteoarthritis, unspecified site
CPT/HCPCS: 36415; 70450-TC; 71046-TC-FY; 80048; 80053; 80061; 81003; 82550; 82553; 82962; 83036; 83721; 83735; 84100; 84443; 84484; 85025; 85610; 85730; 87086; 93005; 93010; 93306-TC; 93880-TC; 96372; 99285-25; G0378; J1644

== ENCOUNTER 2022-06-04 11:29 | Emergency (ER) | payer OTHER ==
[2022-06-04 11:52] VITALS: BP 131/51; PULSE 77; TEMP 99.8; BMI 33.3
== END 2022-06-04 14:43 | disposition home or self-care (01) ==
LOC: JERFT 11:29
DX: M25.511 Pain in right shoulder (principal)
CPT/HCPCS: 73030-TC-RT-FY; 99284-25

== ENCOUNTER 2025-04-06 16:04 | Emergency (ER) | payer OTHER ==
[2025-04-06 16:14] VITALS: BMI 30.2
[2025-04-06] MEDS ORDERED: ACETAMINOPHEN INJECTION 100 ML ONE (16:56)
[2025-04-06] MEDS ORDERED: ACETAMINOPHEN 325 MG TABLET (FP) ONE (17:29)
[2025-04-06] MEDS: ACETAMINOPHEN 500 MG TABLET (FP) PO ONE (17:38)
[2025-04-06] MEDS: ACETAMINOPHEN 1000 MG/100 ML BAG IVPB ONE (17:38)
[2025-04-06 19:22] VITALS: BP 146/46; PULSE 63; RESP 16; TEMP 98.8
== END 2025-04-06 19:22 | disposition home or self-care (01) ==
LOC: JER 16:04
DX: S00.01XA Abrasion of scalp, initial encounter (principal); W10.9XXA Fall (on) (from) unspecified stairs and steps, initial encounter; Y92.009 Unspecified place in unspecified non-institutional (private) residence as the place of occurrence of the external cause
CPT/HCPCS: 70450-TC; 71045-TC-FY; 72125-TC; 72170-TC-FY; 82962; 99285-25